=== PATIENT | female | born 1995 | race Caucasian/White ===

== ENCOUNTER 2020-04-30 12:36 | Emergency (ER) | payer BC ==
--- NOTE | 2020-04-30 13:11 | EDM.PDOC ---
ED HPI GENERAL MEDICAL PROBLEM - General Chief Complaint: Lower Extremity Injury/Pain Stated Complaint: FALL, R FOOT PAIN Time Seen by Provider: 04/30/20 12:41 Source of Information: Reports: Patient, RN Notes Reviewed History Limitations: Reports: No Limitations - History of Present Illness INITIAL COMMENTS - FREE TEXT/NARRATIVE: Patient is a 24-year-old female who presents to the ED for the evaluation of her right lateral foot pain. Patient states that she is stepped off a curb , and ended up rolling her right ankle. She states that she has been able to walk on the extremity, but states that there is increasing pain/tenderness in the right lateral foot, and she sometimes hears a "click", when she is walking. She is concerned and want to make sure there is no sign of a fracture in her foot. Patient has been using ibuprofen, 800 mg, last dose was at 8 AM, she states that this does help the pain. She does also appreciate quite a bit of bruising to her right lateral foot as well. She denies any sort of numbness/tingling into the toes, she is still able to move her ankle at the joint without any difficulty. She further denies any other sick-like symptoms, fever/chills, cough/shortness of breath, or any other abnormalities at today's visit. Patient denies any sort of , as she states that her LMP was last week. Right Feet Pain Score (Numeric/FACES): 2 - Related Data Allergies Allergy/AdvReac Type Severity Reaction Status Date / Time No Known Allergies Allergy Verified 04/30/20 12:44 Home Meds: Home Meds . [No Known Home Meds] 04/30/20 [History] Past Medical History - Past Surgical History HEENT Surgical History: Reports: Myringotomy w Tube(s), Other (See Below) Other HEENT Surgeries/Procedures: Ear drum sx Social & Family History - Family History Family Medical History: Noncontributory - Tobacco Use Smoking Status *Q: Never Smoker Second Hand Smoke Exposure: No - Caffeine Use Caffeine Use: Reports: Coffee, Tea - Recreational Drug Use Recreational Drug Use: No Review of Systems - Review of Systems Review Of Systems: Comprehensive ROS is negative, except as noted in HPI. ED EXAM, GENERAL - Physical Exam Exam: See Below Exam Limited By: No Limitations General Appearance: Alert, WD/WN, No Apparent Distress Respiratory/Chest: No Respiratory Distress, Lungs Clear, Normal Breath Sounds, No Accessory Muscle Use, Chest Non-Tender Cardiovascular: Normal Peripheral Pulses, Regular Rate, Rhythm, No Murmur Peripheral Pulses: 2+: Dorsalis Pedis (L), Dorsalis Pedis (R) Extremities: Normal Inspection (with bruising noted to R lateral foot), Normal Range of Motion, Normal Capillary Refill Neurological: Alert, Oriented, Normal Cognition, No Motor/Sensory Deficits Psychiatric: Normal Affect, Normal Mood Skin Exam: Warm, Dry, Intact, No Rash, Ecchymosis (to R lateral foot) ED TRAUMA EXTREMITY PROCEDURES - Splinting Right Lower Extremity Splint Site: right foot Pre-Procedure NV Status: Normal Post-Procedure NV Status: Normal Splint Material: Boot Orthotic (with crutches for non-weightbearing purposes) Applied & Form Fitted By: Nurse Provider Post-Splint Application NV Check: NV Status Normal, Good Position Complications: No Course - Vital Signs Last Recorded V/S: Last Vital Signs Temp 98.1 F 04/30/20 12:41 Pulse 90 04/30/20 12:41 Resp 18 04/30/20 12:41 BP 148/107 H 04/30/20 12:41 Pulse Ox 98 04/30/20 12:41 - Orders/Labs/Meds Orders: Active Orders 24 hr Category Date Time Status Foot Comp Min 3V Rt [CR] Stat Exams 04/30/20 13:04 Ordered DME for Discharge [COMM] Routine Oth 04/30/20 13:31 Ordered - Re-Assessments/Exams Free Text/Narrative Re-Assessment/Exam: 04/30/20 13:10 Patient presents to the ED for the evaluation of her right foot injury. Have ordered x-rays to evaluate for bony injury. 04/30/20 13:29 Patient x-rays are done, does demonstrate a Martin type fracture on the base of the fifth metatarsal, will immobilize and have her be nonweightbearing and follow-up with Ortho in a week or so for further management. Departure - Departure Time of Disposition: 13:32 Disposition: Home, Self-Care 01 Condition: Good Clinical Impression: Fracture of 5th metatarsal Qualifiers: Encounter type: initial encounter Fracture type: closed Fracture alignment: nondisplaced Laterality: right Qualified Code(s): S92.354A - Nondisplaced fracture of fifth metatarsal bone, right foot, initial encounter for closed fracture - Discharge Information *PRESCRIPTION DRUG MONITORING PROGRAM REVIEWED*: No *COPY OF PRESCRIPTION DRUG MONITORING REPORT IN PATIENT FERNY: No Instructions: Metatarsal Fracture Referrals: PCP,None [Primary Care Provider] - Forms: ED Department Discharge Additional Instructions: You have been evaluated in the ED for your right foot injury. Your x-ray demonstrated a fracture of the 5th metatarsal of your right foot, this is commonly called a Sami's fracture. It is nondisplaced, and should heal well. Management of this will be immobilization, and nonweightbearing, you have been given a walking boot for immobilization, however just because the name implies it is a walking boot, you are to be nonweightbearing on this extremity until cleared by orthopedics. You were given crutches for ambulation, so you can remain nonweightbearing on this extremity. Please use ice as tolerated to the affected area. Please elevate the affected extremity as much as possible, to help relieve some of the swelling. You may take Tylenol 500 mg or ibuprofen 600mg q6 hrs for pain relief. Please do so until you have a tolerable level of pain with activity. Do not exceed 4000mg Tylenol, Do not exceed 3200mg ibuprofen in a 24 hour time period. Please call Ortho for follow-up and further evaluation Dr. Talavera is our orthopedic surgeon, his office number is [phone]. Please call and set up an appointment as soon as possible for further management. This would be beneficial to line up an appoint with him sometime by the end of this week, or into early next week. Please return to ED if your symptoms should change or worsen. Sepsis Event Note (ED) - Evaluation Sepsis Screening Result: No Definite Risk - Focused Exam Vital Signs: Vital Signs Temp Pulse Resp BP Pulse Ox 04/30/20 12:41 98.1 F 90 18 148/107 H 98 - My Orders Last 24 Hours: My Active Orders 04/30/20 13:04 Foot Comp Min 3V Rt [CR] Stat 04/30/20 13:31 DME for Discharge [COMM] Routine - Assessment/Plan Last 24 Hours: My Active Orders 04/30/20 13:04 Foot Comp Min 3V Rt [CR] Stat 04/30/20 13:31 DME for Discharge [COMM] Routine
--- NOTE | 2020-04-30 15:54 | CR ---
Right foot: 4 views of the right foot were obtained. Comparison: No previous foot exam. Nondisplaced fracture within the base of the 5th metatarsal is seen. No additional fracture or other bony abnormality is appreciated. Impression: 1. 5th metatarsal fracture. 2. Right foot study is otherwise unremarkable. Diagnostic code #3 This report was dictated in MDT
== END 2020-04-30 14:05 | disposition home or self-care (01) ==
LOC: JD.ED 12:36
DX: S92.354A Nondisplaced fracture of fifth metatarsal bone, right foot, initial encounter for closed fracture (principal); X50.9XXA Other and unspecified overexertion or strenuous movements or postures, initial encounter
CPT/HCPCS: 73630-26-RT; 73630-RT; 99282; 99283-25

== ENCOUNTER 2023-01-16 05:00 | Inpatient (IN) | payer BC ==
[2023-01-16] MEDS ORDERED: Betamethasone Acetate/Betamethasone Sod Phosphate 6 MG/1 ML MDV IM ONE (05:07)
[2023-01-16] MEDS: Lactated Ringers 1,000 ML IV SCH ×2 (05:28→06:25)
[2023-01-16] MEDS ORDERED: Metoclopramide 10 MG/2 ML SDV IVPUSH ONE (07:00)
[2023-01-16] MEDS ORDERED: Citric Acid/Sodium Citrate Solution 30 ML Cup PO ONE (07:00)
[2023-01-16] MEDS ORDERED: Ondansetron 4 MG/2 ML SDV IVPUSH PRN (07:02)
[2023-01-16] MEDS ORDERED: HYDROmorphone 0.5 MG/0.5 ML Syringe IVPUSH PRN (07:02)
[2023-01-16] MEDS ORDERED: fentaNYL 100 MCG/2 ML SDV IVPUSH PRN (07:02)
[2023-01-16] MEDS ORDERED: Ondansetron 4 MG/2 ML SDV ONE (07:08)
[2023-01-16] MEDS ORDERED: ceFAZolin 2 GM Vial ONE (07:08)
[2023-01-16] MEDS ORDERED: Ketorolac 30 MG/ML SDV ONE (07:08)
[2023-01-16] MEDS ORDERED: Morphine PF 1 MG/ML Amp ONE (07:08)
[2023-01-16] MEDS ORDERED: Phenylephrine 1% 10 MG/ML SDV ONE (07:17)
[2023-01-16] MEDS ORDERED: Oxytocin 10 Units/1 ML SDV ONE ×2 (07:17)
[2023-01-16] MEDS ORDERED: Oxytocin/Lactated Ringers 10 UNIT/1,000 ML BAG IV SCH (08:00)
[2023-01-16] MEDS ORDERED: ceFAZolin 2 GM in Sodium Chloride 0.9% 50 ML IV ONE (08:00)
[2023-01-16] MEDS ORDERED: diphenhydrAMINE 50 MG/ML SDV IVPUSH PRN (09:39)
[2023-01-16] MEDS ORDERED: ePHEDrine 50 MG/ML SDV IVPUSH PRN (09:39)
[2023-01-16] MEDS ORDERED: Acetaminophen/oxyCODONE 325-5 MG Tab PO PRN ×2 (09:39)
[2023-01-16] MEDS ORDERED: Docusate Sodium 100 MG Cap PO PRN (09:39)
[2023-01-16] MEDS ORDERED: Dextrose 5%-Lactated Ringers 1,000 ML IV SCH (09:39)
[2023-01-16] MEDS ORDERED: Naloxone 0.4 MG/ML SDV IVPUSH PRN (09:39)
[2023-01-16] MEDS: Ketorolac 30 MG/ML SDV IVPUSH SCH ×2 (14:39→20:33)
[2023-01-17] MEDS: Ketorolac 30 MG/ML SDV IVPUSH SCH (02:20)
[2023-01-17] MEDS ORDERED: Ibuprofen 600 MG Tab PO PRN (08:30)
== END 2023-01-18 11:49 | disposition home or self-care (01) | DRG 540 ==
LOC: JD.OB 05:00
PROVIDERS: ADMIT Obstetrics & Gynecology; ATTEND Obstetrics & Gynecology
PROC: 10D00Z1 Extraction of Products of Conception, Low, Open Approach (ICD-10-PCS; principal; 2023-01-16)
DX: O32.1XX0 Maternal care for breech presentation, not applicable or unspecified (principal); O14.94 Unspecified pre-eclampsia, complicating childbirth; Z37.0 Single live birth; Z3A.37 37 weeks gestation of pregnancy
CPT/HCPCS: 01961; 36415; 59025; 85027; 86592; A9270-GY; J0690; J1885; J2274; J2370; J2405; J2590; J2765; J7120; J7121